=== PATIENT | female | born 1935 | race Caucasian/White ===

== ENCOUNTER 2017-05-24 09:40 | Inpatient (IN) ==
[2017-05-24] MEDS ORDERED: LEVOFLOXACIN INJ 500 MG in PREMIX 1 EACH IV STA (09:56)
[2017-05-24] MEDS ORDERED: methylPREDNISolone SOD SUC 125 MG/2 ML VIAL IV STA (09:56)
[2017-05-24] MEDS ORDERED: LEVALBUTEROL 1.25 MG/3 ML NEB RESP TX STA (09:57)
[2017-05-24] MEDS ORDERED: LEVOFLOXACIN INJ 100 ML IV ONE (10:02)
[2017-05-24] MEDS ORDERED: methylPREDNISolone SOD SUC 125 MG/2 ML VIAL ONE (10:02)
[2017-05-24 10:07] LABS: Basophils # 0.1 10*3/uL (0.0-0.2); Basophils % 0.7 % (0.0-0.8); Hematocrit 38.9 VOL% (35.7-47.0); Hemoglobin 12.5 GM/DL (12.0-16.0); Immature Granulocytes % 0.5 %; Immature Granulocytes Absolute 0.05 #; Lymphocytes # 1.9 10*3/uL (1.4-4.0); Lymphocytes % 18.5 % (21.3-54.2); Mean Corpuscular HGB Conc 32.1 GM/DL (32-36); Mean Corpuscular Hemoglobin 27 PG (27-34); Mean Corpuscular Volume 83.5 FL (87-102); Mean Platelet Volume 9.8 FL (9.6-12.0); Monocytes % 9.6 % (1.7-12.7); Neutrophils # 7.4 10*3/uL (1.4-7.4); Neutrophils % 70.7 % (38.7-73.9); Platelet Count 200 T/CUMM (130-400); Red Blood Count 4.66 MC/CUMM (3.8-5.5); Red Cell Distribution Width 14.3 % (9.3-17.3); White Blood Count 10.5 T/CUMM (4-12)
[2017-05-24 10:18] LABS: INR 0.9; Partial Thromboplastin Time 28.4 SECS (0-40)
[2017-05-24 10:43] LABS: Albumin 3.6 G/DL (3.4-5.0); Bilirubin,Total 0.8 MG/DL (0.2-1.0); Calcium 8.3 MG/DL (8.5-10.1); Osmolality,Calculated 258.9 MOS/KG (273-304); Potassium 3.9 MMOL/L (3.5-5.1); Total Protein 6.8 G/DL (6.4-8.3)
[2017-05-24 10:44] LABS: Apearance,Urine CLEAR (Clear); Bilirubin,Urine Negative (Negative); Blood, Urine Negative (Negative); Glucose,Urine (UA) 150 mg/dL (Negative); Ketones,Urine Negative (Negative); Mucus,Urine Occasional /LPF (Occasional); Nitrite,Urine Negative (Negative); Protein,Urine 30 MG/DL; RBC,Urine 1 /HPF (0-4); Squamous Epithelial Cell,Urine Occasional /HPF (0-10); Troponin I Only 0.329 NG/ML (0.00-0.045); Urine Color Yellow (Yellow); Urine Specific Gravity 1.018 (1.001-1.035); WBC,Urine 1 /HPF (0-6)
[2017-05-24] MEDS ORDERED: ASPIRIN CHEW 81 MG TABLET PO STA (11:28)
[2017-05-24] MEDS ORDERED: ENOXAPARIN 80 MG/0.8 ML SYRINGE SUBCUT STA (11:28)
[2017-05-24] MEDS ORDERED: OSELTAMIVIR 75 MG CAPSULE ONE (11:36)
[2017-05-24] MEDS: OSELTAMIVIR 75 MG CAPSULE PO SCH ×2 (11:39→22:57)
[2017-05-24] MEDS ORDERED: ENOXAPARIN 100 MG/ML SYRINGE SUBCUT ONE (11:40)
[2017-05-24] MEDS ORDERED: ASPIRIN CHEW 81 MG TABLET PO ONE (11:40)
[2017-05-24] MEDS ORDERED: ONDANSETRON 4 MG/2 ML VIAL IV PRN (15:09)
[2017-05-24] MEDS ORDERED: LEVALBUTEROL 1.25 MG/3 ML NEB RESP TX SCH (15:09)
[2017-05-24] MEDS ORDERED: GLUCAGON 1 MG VIAL IM PRN (15:09)
[2017-05-24] MEDS ORDERED: ACETAMINOPHEN 325 MG TABLET PO PRN (15:09)
[2017-05-24] MEDS ORDERED: methylPREDNISolone SOD SUC 125 MG/2 ML VIAL IV SCH (15:09)
[2017-05-24] MEDS ORDERED: DEXTROSE 50% 25 GM/50 ML VIAL IV PRN (15:09)
[2017-05-24] MEDS ORDERED: FUROSEMIDE 20 MG/2 ML VIAL IV ONE ×2 (16:01→21:15)
[2017-05-24] MEDS ORDERED: hydrALAZINE 25 MG TABLET PO PRN (16:05)
[2017-05-24] MEDS: SODIUM CHLORIDE 0.9% 1,000 ML IV SCH (16:27)
[2017-05-24] MEDS: methylPREDNISolone SOD SUC 125 MG/2 ML VIAL IV SCH (16:27)
[2017-05-24] MEDS: LEVALBUTEROL 1.25 MG/3 ML NEB RESP TX SCH ×2 (17:28→19:23)
[2017-05-24] MEDS: BUDESONIDE 0.25 MG/2 ML NEB RESP TX SCH ×2 (17:28→19:23)
[2017-05-24] MEDS: INSULIN LISPRO 100 UNIT/ML SUBCUT SCH ×2 (17:37→22:58)
[2017-05-24] MEDS ORDERED: hydrALAZINE 25 MG TABLET PO ONE (21:23)
[2017-05-24] MEDS: DOCUSATE SODIUM 100 MG CAPSULE PO SCH (22:57)
[2017-05-24] MEDS: OLANZapine 2.5 MG TABLET PO SCH (22:58)
[2017-05-24 23:02] LABS: CKMB % 1.2 %
[2017-05-24 23:03] LABS: Troponin I Only 0.199 NG/ML (0.00-0.045)
[2017-05-24] MEDS: KETOROLAC 15 MG/1 ML VIAL IV SCH (23:41)
[2017-05-24] MEDS: methylPREDNISolone SOD SUC 40 MG/1 ML VIAL IV SCH (23:42)
[2017-05-24] MEDS: cefTRIAXone 500 MG in SYRINGE 1 EACH IV SCH (23:43)
[2017-05-25] MEDS: methylPREDNISolone SOD SUC 125 MG/2 ML VIAL IV SCH (00:20)
[2017-05-25] MEDS: LEVALBUTEROL 1.25 MG/3 ML NEB RESP TX SCH ×6 (00:27→19:44)
[2017-05-25] MEDS: SODIUM CHLORIDE 0.9% 1,000 ML IV SCH ×3 (03:56→22:36)
[2017-05-25] MEDS: KETOROLAC 15 MG/1 ML VIAL IV SCH ×4 (03:57→22:41)
[2017-05-25 04:44] LABS: Basophils % 0.1 % (0.0-0.8); Hematocrit 37.4 VOL% (35.7-47.0); Hemoglobin 12.4 GM/DL (12.0-16.0); Immature Granulocytes % 0.6 %; Immature Granulocytes Absolute 0.04 #; Lymphocytes # 0.8 10*3/uL (1.4-4.0); Mean Corpuscular HGB Conc 33.2 GM/DL (32-36); Mean Corpuscular Hemoglobin 27 PG (27-34); Mean Corpuscular Volume 80.8 FL (87-102); Mean Platelet Volume 10.3 FL (9.6-12.0); Monocytes # 0.4 10*3/uL (0.11-0.8); Monocytes % 5.4 % (1.7-12.7); Neutrophils % 82.9 % (38.7-73.9); Platelet Count 207 T/CUMM (130-400); Red Blood Count 4.63 MC/CUMM (3.8-5.5); Red Cell Distribution Width 14.2 % (9.3-17.3); White Blood Count 7.3 T/CUMM (4-12)
[2017-05-25 05:31] LABS: Calcium 7.9 MG/DL (8.5-10.1); Magnesium 1.7 MG/DL (1.8-2.4); Osmolality,Calculated 275.5 MOS/KG (273-304); Potassium 3.8 MMOL/L (3.5-5.1)
[2017-05-25 05:48] LABS: CKMB % 1.4 %
[2017-05-25 05:55] LABS: Troponin I Only 0.128 NG/ML (0.00-0.045)
[2017-05-25] MEDS: methylPREDNISolone SOD SUC 40 MG/1 ML VIAL IV SCH ×3 (06:21→22:42)
[2017-05-25] MEDS: BUDESONIDE 0.25 MG/2 ML NEB RESP TX SCH ×2 (07:24→19:44)
[2017-05-25] MEDS ORDERED: OLANZapine 2.5 MG TABLET PO SCH (09:00)
[2017-05-25] MEDS: DOCUSATE SODIUM 100 MG CAPSULE PO SCH ×2 (10:13→22:37)
[2017-05-25] MEDS: PANTOPRAZOLE 40 MG TABLET PO SCH (10:18)
[2017-05-25] MEDS: METOPROLOL SUCCINATE XL 100 MG TABLET PO SCH (10:18)
[2017-05-25] MEDS: INSULIN LISPRO 100 UNIT/ML SUBCUT SCH ×4 (10:18→22:38)
[2017-05-25] MEDS: PARoxetine 20 MG TABLET PO SCH (10:18)
[2017-05-25] MEDS: hydrALAZINE 25 MG TABLET PO SCH ×3 (10:18→22:37)
[2017-05-25] MEDS: FUROSEMIDE 20 MG/2 ML VIAL IV SCH (10:18)
[2017-05-25] MEDS: OSELTAMIVIR 75 MG CAPSULE PO SCH ×2 (10:18→22:37)
[2017-05-25] MEDS: AZITHROMYCIN INJ 250 MG in SODIUM CHLORIDE 0.9% 250 ML IV SCH (10:19)
[2017-05-25] MEDS ORDERED: MAGNESIUM SULF RIDER 2 GM in PREMIX 1 EACH IV ONE (10:38)
[2017-05-25] MEDS: ZINC OXIDE PASTE 113 GM TUBE TOP SCH ×2 (17:25→22:38)
[2017-05-25] MEDS: MONTELUKAST 10 MG TABLET PO SCH (17:25)
[2017-05-25] MEDS ORDERED: MAGNESIUM SULF RIDER 2 GM in PREMIX 1 EACH IV PRN (18:06)
[2017-05-25] MEDS ORDERED: MAGNESIUM SULF RIDER 4 GM in PREMIX 1 EACH IV PRN (18:06)
[2017-05-25] MEDS: OLANZapine 2.5 MG TABLET PO SCH (22:37)
[2017-05-25] MEDS: cefTRIAXone 500 MG in SYRINGE 1 EACH IV SCH (22:38)
[2017-05-26] MEDS: LEVALBUTEROL 1.25 MG/3 ML NEB RESP TX SCH ×6 (02:09→19:30)
[2017-05-26] MEDS: KETOROLAC 15 MG/1 ML VIAL IV SCH ×4 (04:57→22:15)
[2017-05-26] MEDS: methylPREDNISolone SOD SUC 40 MG/1 ML VIAL IV SCH ×3 (05:00→22:18)
[2017-05-26 05:01] LABS: Basophils % 0.1 % (0.0-0.8); Hematocrit 37.8 VOL% (35.7-47.0); Hemoglobin 12.2 GM/DL (12.0-16.0); Immature Granulocytes % 0.5 %; Immature Granulocytes Absolute 0.06 #; Lymphocytes % 8.5 % (21.3-54.2); Mean Corpuscular HGB Conc 32.3 GM/DL (32-36); Mean Corpuscular Hemoglobin 27 PG (27-34); Mean Corpuscular Volume 82.9 FL (87-102); Monocytes # 0.6 10*3/uL (0.11-0.8); Monocytes % 5.4 % (1.7-12.7); Neutrophils # 9.9 10*3/uL (1.4-7.4); Neutrophils % 85.5 % (38.7-73.9); Platelet Count 249 T/CUMM (130-400); Red Blood Count 4.56 MC/CUMM (3.8-5.5); Red Cell Distribution Width 14.5 % (9.3-17.3); White Blood Count 11.6 T/CUMM (4-12)
[2017-05-26 05:36] LABS: Calcium 7.9 MG/DL (8.5-10.1); Osmolality,Calculated 276.2 MOS/KG (273-304); Potassium 4.1 MMOL/L (3.5-5.1)
[2017-05-26] MEDS: SODIUM CHLORIDE 0.9% 1,000 ML IV SCH ×3 (05:59→16:16)
[2017-05-26] MEDS: BUDESONIDE 0.25 MG/2 ML NEB RESP TX SCH ×2 (07:24→19:30)
[2017-05-26] MEDS: MONTELUKAST 10 MG TABLET PO SCH (09:25)
[2017-05-26] MEDS: PARoxetine 20 MG TABLET PO SCH (09:25)
[2017-05-26] MEDS: METOPROLOL SUCCINATE XL 100 MG TABLET PO SCH (09:26)
[2017-05-26] MEDS: PANTOPRAZOLE 40 MG TABLET PO SCH (09:26)
[2017-05-26] MEDS: OSELTAMIVIR 75 MG CAPSULE PO SCH ×2 (09:26→20:54)
[2017-05-26] MEDS: hydrALAZINE 25 MG TABLET PO SCH ×3 (09:26→21:01)
[2017-05-26] MEDS: FUROSEMIDE 20 MG/2 ML VIAL IV SCH (09:26)
[2017-05-26] MEDS: DOCUSATE SODIUM 100 MG CAPSULE PO SCH ×2 (09:26→20:54)
[2017-05-26] MEDS: INSULIN LISPRO 100 UNIT/ML SUBCUT SCH ×4 (09:26→21:01)
[2017-05-26] MEDS: AZITHROMYCIN INJ 250 MG in SODIUM CHLORIDE 0.9% 250 ML IV SCH (09:42)
[2017-05-26] MEDS: GLIMEPIRIDE 4 MG TABLET PO SCH (14:28)
[2017-05-26] MEDS: ZINC OXIDE PASTE 113 GM TUBE TOP SCH ×2 (17:05→20:55)
[2017-05-26] MEDS: OLANZapine 2.5 MG TABLET PO SCH (20:54)
[2017-05-26] MEDS: cefTRIAXone 500 MG in SYRINGE 1 EACH IV SCH (22:15)
[2017-05-27] MEDS: LEVALBUTEROL 1.25 MG/3 ML NEB RESP TX SCH ×6 (00:19→19:58)
[2017-05-27 02:29] LABS: Basophils % 0.1 % (0.0-0.8); Hematocrit 35.3 VOL% (35.7-47.0); Immature Granulocytes Absolute 0.11 #; Lymphocytes # 1.4 10*3/uL (1.4-4.0); Lymphocytes % 13.2 % (21.3-54.2); Mean Corpuscular HGB Conc 31.2 GM/DL (32-36); Mean Corpuscular Hemoglobin 26 PG (27-34); Mean Corpuscular Volume 84.7 FL (87-102); Mean Platelet Volume 9.9 FL (9.6-12.0); Monocytes # 0.8 10*3/uL (0.11-0.8); Monocytes % 7.1 % (1.7-12.7); Neutrophils # 8.3 10*3/uL (1.4-7.4); Neutrophils % 78.6 % (38.7-73.9); Platelet Count 224 T/CUMM (130-400); Red Blood Count 4.17 MC/CUMM (3.8-5.5); Red Cell Distribution Width 14.6 % (9.3-17.3); White Blood Count 10.6 T/CUMM (4-12)
[2017-05-27 03:02] LABS: Calcium 7.6 MG/DL (8.5-10.1); Magnesium 2.3 MG/DL (1.8-2.4); Potassium 4.3 MMOL/L (3.5-5.1)
[2017-05-27] MEDS: KETOROLAC 15 MG/1 ML VIAL IV SCH ×4 (05:37→22:50)
[2017-05-27] MEDS: methylPREDNISolone SOD SUC 40 MG/1 ML VIAL IV SCH ×3 (05:37→22:48)
[2017-05-27] MEDS: BUDESONIDE 0.25 MG/2 ML NEB RESP TX SCH ×2 (07:28→19:59)
[2017-05-27] MEDS: INSULIN LISPRO 100 UNIT/ML SUBCUT SCH ×4 (08:00→22:47)
[2017-05-27] MEDS: SODIUM CHLORIDE 0.9% 1,000 ML IV SCH ×3 (08:00→21:12)
[2017-05-27] MEDS: MONTELUKAST 10 MG TABLET PO SCH (09:22)
[2017-05-27] MEDS: GLIMEPIRIDE 4 MG TABLET PO SCH (09:23)
[2017-05-27] MEDS: PANTOPRAZOLE 40 MG TABLET PO SCH (09:23)
[2017-05-27] MEDS: hydrALAZINE 25 MG TABLET PO SCH ×3 (09:23→21:11)
[2017-05-27] MEDS: DOCUSATE SODIUM 100 MG CAPSULE PO SCH ×2 (09:23→21:11)
[2017-05-27] MEDS: PARoxetine 20 MG TABLET PO SCH (09:23)
[2017-05-27] MEDS: OSELTAMIVIR 75 MG CAPSULE PO SCH ×2 (09:23→21:11)
[2017-05-27] MEDS: METOPROLOL SUCCINATE XL 100 MG TABLET PO SCH (09:24)
[2017-05-27] MEDS: ZINC OXIDE PASTE 113 GM TUBE TOP SCH ×2 (09:24→21:12)
[2017-05-27] MEDS: FUROSEMIDE 20 MG/2 ML VIAL IV SCH (09:39)
[2017-05-27] MEDS: AZITHROMYCIN INJ 250 MG in SODIUM CHLORIDE 0.9% 250 ML IV SCH (10:39)
[2017-05-27] MEDS ORDERED: FUROSEMIDE 20 MG/2 ML VIAL IV ONE (12:55)
[2017-05-27] MEDS: CETIRIZINE 10 MG TABLET PO SCH (14:21)
[2017-05-27] MEDS: OLANZapine 2.5 MG TABLET PO SCH (21:11)
[2017-05-27] MEDS: cefTRIAXone 500 MG in SYRINGE 1 EACH IV SCH (22:50)
[2017-05-28] MEDS: LEVALBUTEROL 1.25 MG/3 ML NEB RESP TX SCH ×7 (01:08→20:14)
[2017-05-28] MEDS: methylPREDNISolone SOD SUC 40 MG/1 ML VIAL IV SCH ×3 (05:06→23:42)
[2017-05-28] MEDS: KETOROLAC 15 MG/1 ML VIAL IV SCH ×5 (05:06→23:42)
[2017-05-28 05:33] LABS: Basophils % 0.1 % (0.0-0.8); Hematocrit 35.3 VOL% (35.7-47.0); Hemoglobin 11.3 GM/DL (12.0-16.0); Immature Granulocytes % 2.6 %; Immature Granulocytes Absolute 0.21 #; Lymphocytes % 12.6 % (21.3-54.2); Mean Corpuscular Hemoglobin 27 PG (27-34); Mean Corpuscular Volume 83.6 FL (87-102); Monocytes # 0.6 10*3/uL (0.11-0.8); Monocytes % 7.3 % (1.7-12.7); Neutrophils # 6.1 10*3/uL (1.4-7.4); Neutrophils % 77.4 % (38.7-73.9); Platelet Count 202 T/CUMM (130-400); Red Blood Count 4.22 MC/CUMM (3.8-5.5); Red Cell Distribution Width 14.9 % (9.3-17.3); White Blood Count 7.9 T/CUMM (4-12)
[2017-05-28 06:03] LABS: Calcium 7.5 MG/DL (8.5-10.1); Osmolality,Calculated 286.5 MOS/KG (273-304); Potassium 4.1 MMOL/L (3.5-5.1)
[2017-05-28] MEDS: SODIUM CHLORIDE 0.9% 1,000 ML IV SCH ×2 (06:18→19:13)
[2017-05-28] MEDS: BUDESONIDE 0.25 MG/2 ML NEB RESP TX SCH ×3 (07:03→20:14)
[2017-05-28] MEDS: INSULIN LISPRO 100 UNIT/ML SUBCUT SCH ×4 (08:41→21:41)
[2017-05-28] MEDS: ZINC OXIDE PASTE 113 GM TUBE TOP SCH ×2 (08:48→21:31)
[2017-05-28] MEDS: MONTELUKAST 10 MG TABLET PO SCH (08:48)
[2017-05-28] MEDS: METOPROLOL SUCCINATE XL 100 MG TABLET PO SCH (08:48)
[2017-05-28] MEDS: GLIMEPIRIDE 4 MG TABLET PO SCH (08:48)
[2017-05-28] MEDS: PARoxetine 20 MG TABLET PO SCH (08:48)
[2017-05-28] MEDS: PANTOPRAZOLE 40 MG TABLET PO SCH (08:48)
[2017-05-28] MEDS: AZITHROMYCIN INJ 250 MG in SODIUM CHLORIDE 0.9% 250 ML IV SCH (08:48)
[2017-05-28] MEDS: OSELTAMIVIR 75 MG CAPSULE PO SCH ×2 (08:48→21:30)
[2017-05-28] MEDS: hydrALAZINE 25 MG TABLET PO SCH ×3 (08:49→21:30)
[2017-05-28] MEDS: DOCUSATE SODIUM 100 MG CAPSULE PO SCH ×2 (08:49→21:30)
[2017-05-28] MEDS: CETIRIZINE 10 MG TABLET PO SCH (08:49)
[2017-05-28] MEDS: FUROSEMIDE 20 MG/2 ML VIAL IV SCH (08:56)
[2017-05-28] MEDS ORDERED: AMINOPHYLLINE 125 MG in SODIUM CHLORIDE 0.9% 100 ML IV ONE (15:00)
[2017-05-28] MEDS: THEOPHYLLINE ER (24 HR) 200 MG CAPSULE PO SCH (16:39)
[2017-05-28] MEDS: OLANZapine 2.5 MG TABLET PO SCH (21:30)
[2017-05-28] MEDS: cefTRIAXone 500 MG in SYRINGE 1 EACH IV SCH (21:31)
[2017-05-29] MEDS: LEVALBUTEROL 1.25 MG/3 ML NEB RESP TX SCH ×7 (01:06→23:47)
[2017-05-29] MEDS: methylPREDNISolone SOD SUC 40 MG/1 ML VIAL IV SCH ×3 (04:50→17:57)
[2017-05-29] MEDS: KETOROLAC 15 MG/1 ML VIAL IV SCH (04:50)
[2017-05-29 05:55] LABS: Basophils % 0.3 % (0.0-0.8); Hematocrit 36.7 VOL% (35.7-47.0); Hemoglobin 11.8 GM/DL (12.0-16.0); Immature Granulocytes % 3.2 %; Immature Granulocytes Absolute 0.24 #; Lymphocytes # 1.5 10*3/uL (1.4-4.0); Lymphocytes % 20.3 % (21.3-54.2); Mean Corpuscular HGB Conc 32.2 GM/DL (32-36); Mean Corpuscular Hemoglobin 27 PG (27-34); Mean Corpuscular Volume 82.7 FL (87-102); Mean Platelet Volume 9.8 FL (9.6-12.0); Monocytes # 0.6 10*3/uL (0.11-0.8); Monocytes % 7.4 % (1.7-12.7); Neutrophils # 5.1 10*3/uL (1.4-7.4); Neutrophils % 68.8 % (38.7-73.9); Platelet Count 184 T/CUMM (130-400); Red Blood Count 4.44 MC/CUMM (3.8-5.5); Red Cell Distribution Width 14.6 % (9.3-17.3); White Blood Count 7.5 T/CUMM (4-12)
[2017-05-29 06:24] LABS: Calcium 8.2 MG/DL (8.5-10.1); Osmolality,Calculated 281.7 MOS/KG (273-304); Potassium 4.1 MMOL/L (3.5-5.1)
[2017-05-29 06:31] LABS: Band Neutrophils 1 % (0-10); Hypochromasia 1+; Lymphocytes 15 % (20-55); Microcytosis 1+; Segmented Neutrophils 78 % (50-85); Total Cells Counted 100
[2017-05-29 06:32] LABS: Platelet Estimate Adequate
[2017-05-29] MEDS: BUDESONIDE 0.25 MG/2 ML NEB RESP TX SCH ×2 (08:27→18:14)
[2017-05-29] MEDS: SODIUM CHLORIDE 0.9% 1,000 ML IV SCH (09:26)
[2017-05-29] MEDS: INSULIN LISPRO 100 UNIT/ML SUBCUT SCH ×4 (10:52→22:26)
[2017-05-29] MEDS: THEOPHYLLINE ER (24 HR) 200 MG CAPSULE PO SCH (10:52)
[2017-05-29] MEDS: amLODIPine 2.5 MG TABLET PO SCH (10:53)
[2017-05-29] MEDS: PARoxetine 20 MG TABLET PO SCH (10:53)
[2017-05-29] MEDS: metFORMIN 500 MG TABLET PO SCH ×2 (10:53→22:26)
[2017-05-29] MEDS: CETIRIZINE 10 MG TABLET PO SCH (10:53)
[2017-05-29] MEDS: MONTELUKAST 10 MG TABLET PO SCH (10:53)
[2017-05-29] MEDS: hydrALAZINE 25 MG TABLET PO SCH ×3 (10:54→21:57)
[2017-05-29] MEDS: GLIMEPIRIDE 4 MG TABLET PO SCH (10:54)
[2017-05-29] MEDS: DOCUSATE SODIUM 100 MG CAPSULE PO SCH ×2 (10:54→21:57)
[2017-05-29] MEDS: METOPROLOL SUCCINATE XL 100 MG TABLET PO SCH (10:54)
[2017-05-29] MEDS: OSELTAMIVIR 75 MG CAPSULE PO SCH ×2 (10:54→21:56)
[2017-05-29] MEDS: FUROSEMIDE 20 MG TABLET PO SCH (10:54)
[2017-05-29] MEDS: PANTOPRAZOLE 40 MG TABLET PO SCH (10:55)
[2017-05-29] MEDS: ZINC OXIDE PASTE 113 GM TUBE TOP SCH (10:55)
[2017-05-29] MEDS: AZITHROMYCIN INJ 250 MG in SODIUM CHLORIDE 0.9% 250 ML IV SCH (11:05)
[2017-05-29] MEDS: OLANZapine 2.5 MG TABLET PO SCH (21:57)
[2017-05-29] MEDS: cefTRIAXone 500 MG in SYRINGE 1 EACH IV SCH (22:45)
[2017-05-30] MEDS: LEVALBUTEROL 1.25 MG/3 ML NEB RESP TX SCH ×5 (02:31→21:08)
[2017-05-30] MEDS: methylPREDNISolone SOD SUC 40 MG/1 ML VIAL IV SCH ×2 (04:42→09:08)
[2017-05-30] MEDS: ZINC OXIDE PASTE 113 GM TUBE TOP SCH ×3 (05:15→21:49)
[2017-05-30] MEDS: BUDESONIDE 0.25 MG/2 ML NEB RESP TX SCH ×2 (08:02→21:08)
[2017-05-30] MEDS: MONTELUKAST 10 MG TABLET PO SCH (08:56)
[2017-05-30] MEDS: amLODIPine 2.5 MG TABLET PO SCH (08:56)
[2017-05-30] MEDS: PANTOPRAZOLE 40 MG TABLET PO SCH (08:56)
[2017-05-30] MEDS: metFORMIN 500 MG TABLET PO SCH ×2 (08:56→21:49)
[2017-05-30] MEDS: DOCUSATE SODIUM 100 MG CAPSULE PO SCH ×2 (08:56→21:49)
[2017-05-30] MEDS: METOPROLOL SUCCINATE XL 100 MG TABLET PO SCH (08:56)
[2017-05-30] MEDS: FUROSEMIDE 20 MG TABLET PO SCH (08:57)
[2017-05-30] MEDS: PARoxetine 20 MG TABLET PO SCH (08:57)
[2017-05-30] MEDS: hydrALAZINE 25 MG TABLET PO SCH ×3 (08:57→21:49)
[2017-05-30] MEDS: THEOPHYLLINE ER (24 HR) 200 MG CAPSULE PO SCH (08:57)
[2017-05-30] MEDS: GLIMEPIRIDE 4 MG TABLET PO SCH (08:57)
[2017-05-30] MEDS: CETIRIZINE 10 MG TABLET PO SCH (08:57)
[2017-05-30] MEDS: INSULIN LISPRO 100 UNIT/ML SUBCUT SCH ×4 (08:58→21:49)
[2017-05-30] MEDS: OLANZapine 2.5 MG TABLET PO SCH (21:49)
[2017-05-30] MEDS: cefTRIAXone 500 MG in SYRINGE 1 EACH IV SCH (21:50)
[2017-05-31] MEDS: LEVALBUTEROL 1.25 MG/3 ML NEB RESP TX SCH ×3 (00:24→08:01)
[2017-05-31] MEDS: BUDESONIDE 0.25 MG/2 ML NEB RESP TX SCH (08:01)
[2017-05-31] MEDS: INSULIN LISPRO 100 UNIT/ML SUBCUT SCH ×2 (08:32→12:54)
[2017-05-31] MEDS: metFORMIN 500 MG TABLET PO SCH (08:33)
[2017-05-31] MEDS: GLIMEPIRIDE 4 MG TABLET PO SCH (08:33)
[2017-05-31] MEDS: PARoxetine 20 MG TABLET PO SCH (10:37)
[2017-05-31] MEDS: FUROSEMIDE 20 MG TABLET PO SCH (10:37)
[2017-05-31] MEDS: MONTELUKAST 10 MG TABLET PO SCH (10:37)
[2017-05-31] MEDS: CETIRIZINE 10 MG TABLET PO SCH (10:37)
[2017-05-31] MEDS: DOCUSATE SODIUM 100 MG CAPSULE PO SCH (10:37)
[2017-05-31] MEDS: hydrALAZINE 25 MG TABLET PO SCH (10:37)
[2017-05-31] MEDS: THEOPHYLLINE ER (24 HR) 200 MG CAPSULE PO SCH (10:37)
[2017-05-31] MEDS: PANTOPRAZOLE 40 MG TABLET PO SCH (10:37)
[2017-05-31] MEDS: amLODIPine 2.5 MG TABLET PO SCH (10:37)
[2017-05-31] MEDS: METOPROLOL SUCCINATE XL 100 MG TABLET PO SCH (10:38)
[2017-05-31] MEDS: methylPREDNISolone SOD SUC 40 MG/1 ML VIAL IV SCH (10:38)
[2017-05-31] MEDS: ZINC OXIDE PASTE 113 GM TUBE TOP SCH (10:57)
[2017-05-31 12:15] VITALS: BP 145/62
== END 2017-05-31 13:55 | disposition home health service (06) | DRG 202 ==
LOC: EDBD → EDUNIT# → N.ED 09:40 → N.EDINP 11:32 → N.TELES 14:30
PROVIDERS: ADMIT Internal Medicine; ATTEND Internal Medicine

== ENCOUNTER 2021-05-18 18:31 | Inpatient (IN) ==
[2021-05-18] MEDS ORDERED: ALBUTEROL 2.5 MG/3 ML NEB RESP TX STA ×2 (18:56→19:45)
[2021-05-18] MEDS ORDERED: methylPREDNISolone SOD SUC 125 MG/2 ML VIAL IV STA (18:56)
[2021-05-18] MEDS ORDERED: LEVOFLOXACIN INJ 500 MG/100 ML PREMIX IV STA (19:43)
[2021-05-18 19:45] LABS: Basophils % 0.3 % (0.0-0.8); Eosinophils # 0.1 10*3/uL (0.0-0.87); Eosinophils % 0.7 % (0.00-10.9); Hematocrit 39.9 VOL% (35.7-47.0); Immature Granulocytes % 0.7 %; Immature Granulocytes Absolute 0.11 #; Lymphocytes % 12.7 % (21.3-54.2); Mean Corpuscular HGB Conc 32.6 GM/DL (32-36); Mean Corpuscular Volume 83.3 FL (87-102); Mean Platelet Volume 9.6 FL (9.6-12.0); Neutrophils % 78.6 % (38.7-73.9); Platelet Count 238 T/CUMM (130-400); Red Blood Count 4.79 MC/CUMM (3.8-5.5); Red Cell Distribution Width 13.3 % (9.3-17.3); White Blood Count 15.9 T/CUMM (4-12)
[2021-05-18] MEDS ORDERED: ALBUTEROL/IPRATROPIUM 3 ML NEB RESP TX STA (19:47)
[2021-05-18 20:00] LABS: ABG Base Excess 5.1 MMOL/L (-2.5-2.5); ABG Oxygen Saturation 95.8 % (95-100); ABG PCO2 61.8 MM HG (35-48); ABG PH 7.337 (7.35-7.45); ABG PO2 84.7 MM HG (80-95); ABG TCO2 29.2 MMOL/L (23-27)
[2021-05-18 20:03] LABS: Albumin 3.2 G/DL (3.4-5.0); Bilirubin,Total 0.5 MG/DL (0.20-1.00); Calcium 8.1 MG/DL (8.5-10.1); Osmolality,Calculated 256.1 MOS/KG (273-304); Potassium 4.1 MMOL/L (3.5-5.1); Total Protein 6.4 G/DL (6.4-8.2)
[2021-05-18] MEDS ORDERED: ONDANSETRON 4 MG/2 ML VIAL IV PRN (21:37)
[2021-05-18] MEDS ORDERED: GLUCAGON 1 MG VIAL IM PRN (21:37)
[2021-05-18] MEDS ORDERED: DEXTROSE 50% 25 GM/50 ML SYRINGE IV PRN (21:37)
[2021-05-18] MEDS ORDERED: ALBUTEROL 2.5 MG/3 ML NEB RESP TX PRN (21:55)
[2021-05-18] MEDS: ALBUTEROL 2.5 MG/3 ML NEB RESP TX SCH (22:00)
[2021-05-18 22:52] LABS: ABG Base Excess -1.5 MMOL/L (-2.5-2.5); ABG HCO3 23.2 MMOL/L (20-26); ABG Oxygen Saturation 97.8 % (95-100); ABG PH 7.304 (7.35-7.45); ABG TCO2 22.8 MMOL/L (23-27)
[2021-05-19] MEDS: methylPREDNISolone SOD SUC 40 MG/1 ML VIAL IV SCH ×4 (01:56→18:38)
[2021-05-19] MEDS: ALBUTEROL 2.5 MG/3 ML NEB RESP TX SCH ×7 (02:30→20:35)
[2021-05-19 05:13] LABS: Basophils % 0.1 % (0.0-0.8); Hematocrit 40.4 VOL% (35.7-47.0); Hemoglobin 13.1 GM/DL (12.0-16.0); Immature Granulocytes % 0.6 %; Lymphocytes # 0.6 10*3/uL (1.4-4.0); Lymphocytes % 3.6 % (21.3-54.2); Mean Corpuscular HGB Conc 32.4 GM/DL (32-36); Mean Platelet Volume 9.5 FL (9.6-12.0); Monocytes % 2.3 % (1.7-12.7); Neutrophils % 93.4 % (38.7-73.9); Platelet Count 249 T/CUMM (130-400); Red Blood Count 4.81 MC/CUMM (3.8-5.5); Red Cell Distribution Width 13.3 % (9.3-17.3); White Blood Count 17.1 T/CUMM (4-12)
[2021-05-19 05:27] LABS: Albumin 2.8 G/DL (3.4-5.0); Bilirubin,Total 0.6 MG/DL (0.20-1.00); Calcium 8.6 MG/DL (8.5-10.1); Osmolality,Calculated 258.6 MOS/KG (273-304); Potassium 3.8 MMOL/L (3.5-5.1); Total Protein 7.2 G/DL (6.4-8.2)
[2021-05-19 08:18] LABS: Lymphocytes 1 % (20-55); Platelet Estimate Normal; Polychromasia Slight; Segmented Neutrophils 98 % (50-85); Total Cells Counted 100
[2021-05-19] MEDS ORDERED: OLANZapine 2.5 MG TABLET PO SCH (09:00)
[2021-05-19] MEDS: THEOPHYLLINE ER (24 HR) 200 MG CAPSULE PO SCH (09:21)
[2021-05-19] MEDS: metFORMIN 500 MG TABLET PO SCH ×2 (09:21→20:59)
[2021-05-19] MEDS: amLODIPine 2.5 MG TABLET PO SCH (09:22)
[2021-05-19] MEDS: PANTOPRAZOLE 40 MG TABLET PO SCH (09:22)
[2021-05-19] MEDS: GLIMEPIRIDE 4 MG TABLET PO SCH (09:22)
[2021-05-19] MEDS: DOCUSATE SODIUM 100 MG CAPSULE PO SCH ×2 (09:22→21:00)
[2021-05-19] MEDS: MONTELUKAST 10 MG TABLET PO SCH (09:24)
[2021-05-19] MEDS: ACETAMINOPHEN 325 MG TABLET PO PRN (09:25)
[2021-05-19] MEDS ORDERED: GLUCAGON 1 MG VIAL IM PRN (10:10)
[2021-05-19] MEDS ORDERED: DEXTROSE 50% 25 GM/50 ML SYRINGE IV PRN (10:10)
[2021-05-19] MEDS ORDERED: ALBUTEROL 2.5 MG/3 ML NEB RESP TX SCH (11:00)
[2021-05-19] MEDS: LEVOFLOXACIN INJ 500 MG/100 ML PREMIX IV SCH (11:23)
[2021-05-19] MEDS: INSULIN LISPRO 100 UNIT/ML SUBCUT SCH ×3 (12:13→21:00)
[2021-05-19] MEDS ORDERED: INFLUENZA VIRUS VACCINE 0.5 ML SYRINGE IM ONE (13:19)
[2021-05-19] MEDS: OLANZapine 2.5 MG TABLET PO SCH (20:59)
[2021-05-20] MEDS: ALBUTEROL 2.5 MG/3 ML NEB RESP TX SCH ×6 (00:35→21:02)
[2021-05-20] MEDS: methylPREDNISolone SOD SUC 40 MG/1 ML VIAL IV SCH ×4 (01:08→19:13)
[2021-05-20 05:46] LABS: Basophils % 0.1 % (0.0-0.8); Hematocrit 36.1 VOL% (35.7-47.0); Hemoglobin 11.9 GM/DL (12.0-16.0); Immature Granulocytes % 1.4 %; Immature Granulocytes Absolute 0.29 #; Lymphocytes # 1.5 10*3/uL (1.4-4.0); Lymphocytes % 7.1 % (21.3-54.2); Mean Corpuscular Volume 81.7 FL (87-102); Mean Platelet Volume 9.6 FL (9.6-12.0); Monocytes % 4.1 % (1.7-12.7); Neutrophils % 87.3 % (38.7-73.9); Platelet Count 280 T/CUMM (130-400); Red Blood Count 4.42 MC/CUMM (3.8-5.5); Red Cell Distribution Width 13.4 % (9.3-17.3); White Blood Count 21.1 T/CUMM (4-12)
[2021-05-20 06:11] LABS: Calcium 8.7 MG/DL (8.5-10.1); Osmolality,Calculated 247.9 MOS/KG (273-304); Potassium 4.2 MMOL/L (3.5-5.1)
[2021-05-20 06:17] LABS: Hypochromia Slight; Lymphocytes 10 % (20-55); Microcytosis Slight; Platelet Estimate Adequate; Segmented Neutrophils 88 % (50-85); Total Cells Counted 100
[2021-05-20] MEDS ORDERED: PARoxetine 20 MG TABLET PO SCH (09:00)
[2021-05-20] MEDS: metFORMIN 500 MG TABLET PO SCH ×2 (09:36→21:05)
[2021-05-20] MEDS: THEOPHYLLINE ER (24 HR) 200 MG CAPSULE PO SCH (09:36)
[2021-05-20] MEDS: MONTELUKAST 10 MG TABLET PO SCH (09:37)
[2021-05-20] MEDS: DOCUSATE SODIUM 100 MG CAPSULE PO SCH (09:37)
[2021-05-20] MEDS: PANTOPRAZOLE 40 MG TABLET PO SCH (09:38)
[2021-05-20] MEDS: amLODIPine 2.5 MG TABLET PO SCH (09:38)
[2021-05-20] MEDS: GLIMEPIRIDE 4 MG TABLET PO SCH (09:40)
[2021-05-20] MEDS: LEVOFLOXACIN INJ 500 MG/100 ML PREMIX IV SCH (09:50)
[2021-05-20] MEDS: INSULIN LISPRO 100 UNIT/ML SUBCUT SCH ×4 (11:08→18:17)
[2021-05-20] MEDS: ACETAMINOPHEN 325 MG TABLET PO PRN (11:08)
[2021-05-20] MEDS: OLANZapine 2.5 MG TABLET PO SCH (21:05)
[2021-05-21] MEDS: methylPREDNISolone SOD SUC 40 MG/1 ML VIAL IV SCH ×4 (00:25→19:25)
[2021-05-21] MEDS: ALBUTEROL 2.5 MG/3 ML NEB RESP TX SCH ×6 (01:07→19:06)
[2021-05-21] MEDS: DOCUSATE SODIUM 100 MG CAPSULE PO SCH ×3 (02:21→21:59)
[2021-05-21] MEDS: INSULIN LISPRO 100 UNIT/ML SUBCUT SCH ×5 (02:21→22:00)
[2021-05-21 05:10] LABS: Basophils % 0.2 % (0.0-0.8); Hematocrit 36.2 VOL% (35.7-47.0); Hemoglobin 11.9 GM/DL (12.0-16.0); Immature Granulocytes % 2.3 %; Immature Granulocytes Absolute 0.42 #; Lymphocytes # 1.2 10*3/uL (1.4-4.0); Lymphocytes % 6.4 % (21.3-54.2); Mean Corpuscular HGB Conc 32.9 GM/DL (32-36); Mean Corpuscular Volume 81.7 FL (87-102); Mean Platelet Volume 9.3 FL (9.6-12.0); Monocytes % 3.8 % (1.7-12.7); Neutrophils % 87.3 % (38.7-73.9); Platelet Count 298 T/CUMM (130-400); Red Blood Count 4.43 MC/CUMM (3.8-5.5); Red Cell Distribution Width 13.2 % (9.3-17.3); White Blood Count 18.6 T/CUMM (4-12)
[2021-05-21 05:26] LABS: Calcium 8.4 MG/DL (8.5-10.1); Osmolality,Calculated 246.1 MOS/KG (273-304); Potassium 4.1 MMOL/L (3.5-5.1)
[2021-05-21] MEDS: metFORMIN 500 MG TABLET PO SCH ×2 (11:27→21:26)
[2021-05-21] MEDS: THEOPHYLLINE ER (24 HR) 200 MG CAPSULE PO SCH (11:28)
[2021-05-21] MEDS: amLODIPine 2.5 MG TABLET PO SCH (11:28)
[2021-05-21] MEDS: PANTOPRAZOLE 40 MG TABLET PO SCH (11:28)
[2021-05-21] MEDS: MONTELUKAST 10 MG TABLET PO SCH (11:29)
[2021-05-21] MEDS: GLIMEPIRIDE 4 MG TABLET PO SCH (11:37)
[2021-05-21] MEDS: LEVOFLOXACIN INJ 500 MG/100 ML PREMIX IV SCH (11:37)
[2021-05-21] MEDS: OLANZapine 2.5 MG TABLET PO SCH (21:26)
[2021-05-22] MEDS: methylPREDNISolone SOD SUC 40 MG/1 ML VIAL IV SCH ×4 (00:21→17:50)
[2021-05-22] MEDS: ALBUTEROL 2.5 MG/3 ML NEB RESP TX SCH ×6 (00:55→20:48)
[2021-05-22 07:54] LABS: Basophils # 0.1 10*3/uL (0.0-0.2); Basophils % 0.4 % (0.0-0.8); Hematocrit 37.4 VOL% (35.7-47.0); Hemoglobin 12.7 GM/DL (12.0-16.0); Immature Granulocytes % 4.6 %; Immature Granulocytes Absolute 0.83 #; Lymphocytes # 1.2 10*3/uL (1.4-4.0); Lymphocytes % 6.6 % (21.3-54.2); Mean Corpuscular Volume 80.4 FL (87-102); Monocytes % 6.4 % (1.7-12.7); Platelet Count 311 T/CUMM (130-400); Red Blood Count 4.65 MC/CUMM (3.8-5.5); Red Cell Distribution Width 13.2 % (9.3-17.3); White Blood Count 18.2 T/CUMM (4-12)
[2021-05-22 08:21] LABS: Calcium 8.3 MG/DL (8.5-10.1); Osmolality,Calculated 248.2 MOS/KG (273-304); Potassium 4.5 MMOL/L (3.5-5.1)
[2021-05-22 08:39] LABS: Band Neutrophils 4 % (0-10); Lymphocytes 14 % (20-55); Myelocytes 2 %; Platelet Estimate Normal; Segmented Neutrophils 72 % (50-85); Total Cells Counted 100
[2021-05-22 08:40] LABS: Anisocytosis 1+; Macrocytosis Slight
[2021-05-22] MEDS: metFORMIN 500 MG TABLET PO SCH ×2 (08:56→21:23)
[2021-05-22] MEDS: amLODIPine 2.5 MG TABLET PO SCH (08:57)
[2021-05-22] MEDS: PANTOPRAZOLE 40 MG TABLET PO SCH (08:57)
[2021-05-22] MEDS: MONTELUKAST 10 MG TABLET PO SCH (08:57)
[2021-05-22] MEDS: GLIMEPIRIDE 4 MG TABLET PO SCH (08:57)
[2021-05-22] MEDS: THEOPHYLLINE ER (24 HR) 200 MG CAPSULE PO SCH (08:58)
[2021-05-22] MEDS: INSULIN LISPRO 100 UNIT/ML SUBCUT SCH ×4 (09:23→21:23)
[2021-05-22] MEDS: DOCUSATE SODIUM 100 MG CAPSULE PO SCH ×2 (09:23→21:22)
[2021-05-22] MEDS: LEVOFLOXACIN INJ 500 MG/100 ML PREMIX IV SCH ×2 (09:30→11:36)
[2021-05-22] MEDS ORDERED: FUROSEMIDE 20 MG/2 ML VIAL IV ONE (13:12)
[2021-05-22] MEDS: SODIUM CHLORIDE 0.9% 1,000 ML IV SCH (16:54)
[2021-05-22] MEDS: OLANZapine 2.5 MG TABLET PO SCH (21:23)
[2021-05-22 21:24] LABS: Calcium 8.5 MG/DL (8.5-10.1); Osmolality,Calculated 253.1 MOS/KG (273-304); Potassium 4.5 MMOL/L (3.5-5.1)
[2021-05-23] MEDS: ALBUTEROL 2.5 MG/3 ML NEB RESP TX SCH ×6 (00:14→20:02)
[2021-05-23] MEDS: methylPREDNISolone SOD SUC 40 MG/1 ML VIAL IV SCH ×5 (00:16→23:25)
[2021-05-23] MEDS: SODIUM CHLORIDE 0.9% 1,000 ML IV SCH ×3 (04:50→17:11)
[2021-05-23 07:12] LABS: Basophils # 0.1 10*3/uL (0.0-0.2); Basophils % 0.7 % (0.0-0.8); Hematocrit 39.9 VOL% (35.7-47.0); Hemoglobin 13.2 GM/DL (12.0-16.0); Immature Granulocytes % 6.5 %; Lymphocytes # 1.3 10*3/uL (1.4-4.0); Lymphocytes % 6.2 % (21.3-54.2); Mean Corpuscular HGB Conc 33.1 GM/DL (32-36); Mean Corpuscular Volume 81.3 FL (87-102); Mean Platelet Volume 8.8 FL (9.6-12.0); Monocytes % 6.7 % (1.7-12.7); Neutrophils % 79.9 % (38.7-73.9); Platelet Count 352 T/CUMM (130-400); Red Blood Count 4.91 MC/CUMM (3.8-5.5); Red Cell Distribution Width 13.4 % (9.3-17.3); White Blood Count 21.4 T/CUMM (4-12)
[2021-05-23 07:32] LABS: Albumin 2.8 G/DL (3.4-5.0); Bilirubin,Total 0.6 MG/DL (0.20-1.00); Calcium 8.6 MG/DL (8.5-10.1); Osmolality,Calculated 254.9 MOS/KG (273-304); Potassium 4.5 MMOL/L (3.5-5.1); Total Protein 6.2 G/DL (6.4-8.2)
[2021-05-23 07:39] LABS: Lymphocytes 8 % (20-55); Platelet Estimate Adequate; Segmented Neutrophils 88 % (50-85); Total Cells Counted 100
[2021-05-23] MEDS: INSULIN LISPRO 100 UNIT/ML SUBCUT SCH ×4 (09:13→20:47)
[2021-05-23] MEDS: THEOPHYLLINE ER (24 HR) 200 MG CAPSULE PO SCH (09:13)
[2021-05-23] MEDS: metFORMIN 500 MG TABLET PO SCH ×2 (09:14→20:45)
[2021-05-23] MEDS: GLIMEPIRIDE 4 MG TABLET PO SCH (09:14)
[2021-05-23] MEDS: amLODIPine 5 MG TABLET PO SCH (09:15)
[2021-05-23] MEDS: DOCUSATE SODIUM 100 MG CAPSULE PO SCH ×2 (09:15→20:47)
[2021-05-23] MEDS: PANTOPRAZOLE 40 MG TABLET PO SCH (09:15)
[2021-05-23] MEDS: MONTELUKAST 10 MG TABLET PO SCH (09:16)
[2021-05-23] MEDS: FUROSEMIDE 20 MG/2 ML VIAL IV SCH (09:16)
[2021-05-23] MEDS: LEVOFLOXACIN INJ 500 MG/100 ML PREMIX IV SCH (09:30)
[2021-05-23] MEDS: SODIUM CHLORIDE 1 GM TABLET PO SCH ×2 (12:18→17:21)
[2021-05-23] MEDS: OLANZapine 2.5 MG TABLET PO SCH (20:45)
[2021-05-24] MEDS: ALBUTEROL 2.5 MG/3 ML NEB RESP TX SCH ×5 (00:07→19:38)
[2021-05-24 05:10] LABS: Basophils # 0.2 10*3/uL (0.0-0.2); Basophils % 0.7 % (0.0-0.8); Hematocrit 36.3 VOL% (35.7-47.0); Hemoglobin 12.2 GM/DL (12.0-16.0); Lymphocytes # 1.1 10*3/uL (1.4-4.0); Lymphocytes % 4.6 % (21.3-54.2); Mean Corpuscular HGB Conc 33.6 GM/DL (32-36); Mean Corpuscular Volume 81.2 FL (87-102); Mean Platelet Volume 8.8 FL (9.6-12.0); Monocytes % 6.8 % (1.7-12.7); Neutrophils % 80.9 % (38.7-73.9); Platelet Count 300 T/CUMM (130-400); Red Blood Count 4.47 MC/CUMM (3.8-5.5); Red Cell Distribution Width 13.7 % (9.3-17.3); White Blood Count 22.7 T/CUMM (4-12)
[2021-05-24 05:41] LABS: Albumin 2.7 G/DL (3.4-5.0); Bilirubin,Total 0.6 MG/DL (0.20-1.00); Osmolality,Calculated 257.6 MOS/KG (273-304); Potassium 4.1 MMOL/L (3.5-5.1); Total Protein 5.5 G/DL (6.4-8.2)
[2021-05-24] MEDS: methylPREDNISolone SOD SUC 40 MG/1 ML VIAL IV SCH ×3 (05:41→18:00)
[2021-05-24 05:44] LABS: Band Neutrophils 1 % (0-10); Hypochromia Slight; Lymphocytes 5 % (20-55); Microcytosis Slight; Platelet Estimate Adequate; Segmented Neutrophils 89 % (50-85); Total Cells Counted 100
[2021-05-24] MEDS: SODIUM CHLORIDE 0.9% 1,000 ML IV SCH ×4 (07:01→21:09)
[2021-05-24] MEDS: MONTELUKAST 10 MG TABLET PO SCH (09:19)
[2021-05-24] MEDS: amLODIPine 5 MG TABLET PO SCH (09:20)
[2021-05-24] MEDS: metFORMIN 500 MG TABLET PO SCH ×2 (09:21→21:07)
[2021-05-24] MEDS: GLIMEPIRIDE 4 MG TABLET PO SCH (09:21)
[2021-05-24] MEDS: SODIUM CHLORIDE 1 GM TABLET PO SCH ×2 (09:21→17:25)
[2021-05-24] MEDS: FUROSEMIDE 20 MG/2 ML VIAL IV SCH (09:22)
[2021-05-24] MEDS: THEOPHYLLINE ER (24 HR) 200 MG CAPSULE PO SCH (09:22)
[2021-05-24] MEDS: PANTOPRAZOLE 40 MG TABLET PO SCH (09:22)
[2021-05-24] MEDS: INSULIN LISPRO 100 UNIT/ML SUBCUT SCH ×4 (09:23→21:08)
[2021-05-24] MEDS: DOCUSATE SODIUM 100 MG CAPSULE PO SCH ×2 (09:23→21:08)
[2021-05-24] MEDS: LEVOFLOXACIN INJ 500 MG/100 ML PREMIX IV SCH (11:22)
[2021-05-24] MEDS: OLANZapine 2.5 MG TABLET PO SCH (21:07)
[2021-05-25] MEDS: methylPREDNISolone SOD SUC 40 MG/1 ML VIAL IV SCH ×3 (00:04→18:01)
[2021-05-25] MEDS: ALBUTEROL 2.5 MG/3 ML NEB RESP TX SCH ×6 (00:51→23:47)
[2021-05-25] MEDS: SODIUM CHLORIDE 0.9% 1,000 ML IV SCH ×4 (04:33→23:33)
[2021-05-25 05:02] LABS: Albumin 2.7 G/DL (3.4-5.0); Bilirubin,Total 0.6 MG/DL (0.20-1.00); Calcium 8.1 MG/DL (8.5-10.1); Osmolality,Calculated 264.1 MOS/KG (273-304); Potassium 4.2 MMOL/L (3.5-5.1); Total Protein 5.6 G/DL (6.4-8.2)
[2021-05-25] MEDS: INSULIN LISPRO 100 UNIT/ML SUBCUT SCH ×4 (11:13→20:41)
[2021-05-25] MEDS: LEVOFLOXACIN INJ 500 MG/100 ML PREMIX IV SCH (11:22)
[2021-05-25] MEDS: GLIMEPIRIDE 4 MG TABLET PO SCH (11:23)
[2021-05-25] MEDS: metFORMIN 500 MG TABLET PO SCH ×2 (11:23→20:41)
[2021-05-25] MEDS: amLODIPine 5 MG TABLET PO SCH (11:23)
[2021-05-25] MEDS: MONTELUKAST 10 MG TABLET PO SCH (11:23)
[2021-05-25] MEDS: THEOPHYLLINE ER (24 HR) 200 MG CAPSULE PO SCH (11:23)
[2021-05-25] MEDS: PANTOPRAZOLE 40 MG TABLET PO SCH (11:24)
[2021-05-25] MEDS: DOCUSATE SODIUM 100 MG CAPSULE PO SCH ×2 (11:24→20:41)
[2021-05-25] MEDS: SODIUM CHLORIDE 1 GM TABLET PO SCH ×2 (11:26→17:03)
[2021-05-25] MEDS: FUROSEMIDE 20 MG/2 ML VIAL IV SCH (18:04)
[2021-05-25] MEDS: OLANZapine 2.5 MG TABLET PO SCH (20:41)
[2021-05-26] MEDS: ALBUTEROL 2.5 MG/3 ML NEB RESP TX SCH ×3 (03:08→09:53)
[2021-05-26] MEDS: SODIUM CHLORIDE 0.9% 1,000 ML IV SCH (04:24)
[2021-05-26 05:51] LABS: Basophils % 0.1 % (0.0-0.8); Eosinophils % 0.1 % (0.00-10.9); Hematocrit 38.4 VOL% (35.7-47.0); Hemoglobin 12.6 GM/DL (12.0-16.0); Immature Granulocytes % 7.5 %; Lymphocytes # 2.4 10*3/uL (1.4-4.0); Mean Corpuscular HGB Conc 32.8 GM/DL (32-36); Mean Corpuscular Volume 83.3 FL (87-102); Mean Platelet Volume 8.6 FL (9.6-12.0); Monocytes % 9.2 % (1.7-12.7); Neutrophils % 77.1 % (38.7-73.9); Platelet Count 295 T/CUMM (130-400); Red Blood Count 4.61 MC/CUMM (3.8-5.5); White Blood Count 39.8 T/CUMM (4-12)
[2021-05-26] MEDS: methylPREDNISolone SOD SUC 40 MG/1 ML VIAL IV SCH (05:58)
[2021-05-26 06:13] LABS: Calcium 7.8 MG/DL (8.5-10.1); Potassium 3.4 MMOL/L (3.5-5.1)
[2021-05-26 06:24] LABS: Lymphocytes 13 % (20-55); Platelet Estimate Normal; Segmented Neutrophils 78 % (50-85); Total Cells Counted 100
[2021-05-26] MEDS: PANTOPRAZOLE 40 MG TABLET PO SCH (09:13)
[2021-05-26] MEDS: MONTELUKAST 10 MG TABLET PO SCH (09:13)
[2021-05-26] MEDS: metFORMIN 500 MG TABLET PO SCH (09:13)
[2021-05-26] MEDS: GLIMEPIRIDE 4 MG TABLET PO SCH (09:14)
[2021-05-26] MEDS: SODIUM CHLORIDE 1 GM TABLET PO SCH (09:14)
[2021-05-26] MEDS: amLODIPine 5 MG TABLET PO SCH (09:14)
[2021-05-26] MEDS: THEOPHYLLINE ER (24 HR) 200 MG CAPSULE PO SCH (09:14)
[2021-05-26] MEDS: DOCUSATE SODIUM 100 MG CAPSULE PO SCH (09:16)
[2021-05-26] MEDS: INSULIN LISPRO 100 UNIT/ML SUBCUT SCH ×2 (11:27→11:56)
[2021-05-26] MEDS: LEVOFLOXACIN INJ 500 MG/100 ML PREMIX IV SCH (11:55)
[2021-05-26 13:01] VITALS: BP 148/65
[2021-05-26] MEDS ORDERED: INFLUENZA VIRUS VACCINE 0.5 ML SYRINGE IM ONE (13:05)
== END 2021-05-26 13:07 | disposition home health service (06) | DRG 190 ==
LOC: EDBD → EDUNIT# → N.ED 18:31 → N.EDINP 21:37 → N.TELEN 05-19 05:57
PROVIDERS: ADMIT Internal Medicine; ATTEND Internal Medicine

== ENCOUNTER 2021-05-28 17:36 | Inpatient (IN) ==
[2021-05-28] MEDS ORDERED: DEXTROSE 50% 25 GM/50 ML SYRINGE IV ONE (17:44)
[2021-05-28] MEDS ORDERED: DEXTROSE 50% 25 GM/50 ML SYRINGE IV STA ×2 (17:47→17:49)
[2021-05-28] MEDS ORDERED: DEXTROSE 50% 25 GM/50 ML VIAL IV STA ×2 (17:48→19:55)
[2021-05-28] MEDS: DEXTROSE 5% 1,000 ML IV SCH (18:15)
[2021-05-28 18:19] LABS: ABG Base Excess 3.3 MMOL/L (-2.5-2.5); ABG HCO3 27.8 MMOL/L (20-26); ABG Oxygen Saturation 98.8 % (95-100); ABG PCO2 42.2 MM HG (35-48); ABG PH 7.437 (7.35-7.45); ABG PO2 139.7 MM HG (80-95); ABG TCO2 29.1 MMOL/L (23-27)
[2021-05-28 18:44] LABS: Basophils # 0.1 10*3/uL (0.0-0.2); Basophils % 0.4 % (0.0-0.8); Eosinophils # 0.1 10*3/uL (0.0-0.87); Eosinophils % 0.2 % (0.00-10.9); Hematocrit 38.3 VOL% (35.7-47.0); Hemoglobin 12.4 GM/DL (12.0-16.0); Immature Granulocytes % 4.1 %; Immature Granulocytes Absolute 1.01 #; Lymphocytes # 2.1 10*3/uL (1.4-4.0); Lymphocytes % 8.7 % (21.3-54.2); Mean Corpuscular HGB Conc 32.4 GM/DL (32-36); Mean Corpuscular Volume 82.2 FL (87-102); Mean Platelet Volume 9.2 FL (9.6-12.0); Monocytes % 8.9 % (1.7-12.7); Neutrophils % 77.7 % (38.7-73.9); Platelet Count 174 T/CUMM (130-400); Red Blood Count 4.66 MC/CUMM (3.8-5.5); Red Cell Distribution Width 13.9 % (9.3-17.3); White Blood Count 24.4 T/CUMM (4-12)
[2021-05-28 19:19] LABS: Albumin 2.4 G/DL (3.4-5.0); Bilirubin,Total 0.6 MG/DL (0.20-1.00); Calcium 7.6 MG/DL (8.5-10.1); Osmolality,Calculated 259.8 MOS/KG (273-304); Potassium 3.4 MMOL/L (3.5-5.1); Total Protein 5.2 G/DL (6.4-8.2)
[2021-05-28 19:21] LABS: Bacteria,Urine Occasional /HPF (Few); Bilirubin,Urine Negative (Negative); Blood, Urine Negative (Negative); Glucose,Urine (UA) >=500 mg/dL (Negative); Ketones,Urine Negative (Negative); Mucus,Urine Occasional /LPF (Occasional); Nitrite,Urine Negative (Negative); Protein,Urine Negative; RBC,Urine 1 /HPF (0-4); Squamous Epithelial Cell,Urine Occasional /HPF (0-10); Urine Appearance CLEAR (Clear); Urine Color Straw (Yellow); Urine Specific Gravity 1.008 (1.001-1.035); Urine Urobilinogen < 2.0 EU/DL (<2.0)
[2021-05-28] MEDS ORDERED: PIPERACILLIN/TAZOBACTAM 3,375 MG in SODIUM CHLORIDE 0.9% 100 ML IV STA ×2 (19:26→19:55)
[2021-05-28 19:30] LABS: Barbiturates Screen,Urine Negative (Negative); Benzodiazepines Screen,Urine Negative (Negative); Cannabinoid Screen,Urine Negative (Negative); Opiate Screen,Urine Negative (Negative); Phencyclidine Screen,Urine Negative (Negative)
[2021-05-28] MEDS ORDERED: DEXTROSE 10% 500 ML IV ONE (19:35)
[2021-05-28] MEDS: DEXTROSE 10% 1,000 ML IV SCH (19:50)
[2021-05-28] MEDS ORDERED: HYDROCORTISONE 100 MG VIAL IV STA (19:57)
[2021-05-28] MEDS ORDERED: ACETAMINOPHEN 325 MG TABLET PO PRN (20:44)
[2021-05-28] MEDS ORDERED: GLUCAGON 1 MG VIAL IM PRN (20:44)
[2021-05-28] MEDS ORDERED: ONDANSETRON 4 MG/2 ML VIAL IV PRN (20:44)
[2021-05-28] MEDS ORDERED: DEXTROSE 50% 25 GM/50 ML SYRINGE IV PRN (20:59)
[2021-05-28 21:18] LABS: Lymphocytes 12 % (20-55); Microcytosis 1+; Segmented Neutrophils 82 % (50-85); Total Cells Counted 100
[2021-05-28 21:19] LABS: Platelet Estimate Decreased
[2021-05-28] MEDS ORDERED: FUROSEMIDE 40 MG/4 ML VIAL IV STA (22:04)
[2021-05-28] MEDS ORDERED: HYDROCORTISONE 100 MG VIAL IV SCH (22:30)
[2021-05-28] MEDS: cefTRIAXone 1,000 MG in SODIUM CHLORIDE 0.9% 100 ML IV SCH (22:45)
[2021-05-29] MEDS ORDERED: DEXTROSE 50% 25 GM/50 ML VIAL IV ONE (00:07)
[2021-05-29] MEDS ORDERED: DEXTROSE 50% 25 GM/50 ML SYRINGE IV ONE (00:30)
[2021-05-29] MEDS: AZITHROMYCIN INJ 500 MG in SODIUM CHLORIDE 0.9% 250 ML IV SCH ×2 (00:55→23:55)
[2021-05-29 04:02] LABS: Basophils # 0.1 10*3/uL (0.0-0.2); Basophils % 0.3 % (0.0-0.8); Hematocrit 36.7 VOL% (35.7-47.0); Hemoglobin 12.2 GM/DL (12.0-16.0); Immature Granulocytes % 3.5 %; Immature Granulocytes Absolute 0.91 #; Lymphocytes # 2.1 10*3/uL (1.4-4.0); Lymphocytes % 7.9 % (21.3-54.2); Mean Corpuscular HGB Conc 33.2 GM/DL (32-36); Mean Corpuscular Volume 81.6 FL (87-102); Mean Platelet Volume 9.6 FL (9.6-12.0); Neutrophils % 82.3 % (38.7-73.9); Platelet Count 168 T/CUMM (130-400); Red Cell Distribution Width 13.8 % (9.3-17.3); White Blood Count 26.4 T/CUMM (4-12)
[2021-05-29 04:18] LABS: Calcium 7.6 MG/DL (8.5-10.1); Osmolality,Calculated 255.1 MOS/KG (273-304); Potassium 3.1 MMOL/L (3.5-5.1)
[2021-05-29 04:21] LABS: Band Neutrophils 1 % (0-10); Hypochromia 1+; Lymphocytes 6 % (20-55); Microcytosis 1+; Ovalocytes Slight; Segmented Neutrophils 90 % (50-85); Total Cells Counted 100
[2021-05-29 04:22] LABS: Platelet Estimate Adequate
[2021-05-29] MEDS: DEXTROSE 10% 1,000 ML IV SCH ×2 (07:02→17:37)
[2021-05-29] MEDS: HYDROCORTISONE 100 MG VIAL IV SCH ×3 (08:25→23:20)
[2021-05-29] MEDS ORDERED: PIPERACILLIN/TAZOBACTAM 3,375 MG in SODIUM CHLORIDE 0.9% 100 ML IV SCH (09:00)
[2021-05-29] MEDS: ALBUTEROL 2.5 MG/3 ML NEB RESP TX SCH ×4 (10:55→23:30)
[2021-05-29] MEDS ORDERED: LEVOFLOXACIN 250 MG TABLET PO SCH (11:30)
[2021-05-29] MEDS ORDERED: OMEPRAZOLE ODT 20 MG TABLET PO SCH (11:30)
[2021-05-29] MEDS ORDERED: LEVOFLOXACIN INJ 250 MG/50 ML PREMIX IV SCH (16:00)
[2021-05-29] MEDS ORDERED: DEXTROSE 5% 1,000 ML IV SCH (16:00)
[2021-05-29] MEDS: DEXTROSE 5% 1,000 ML IV SCH (17:38)
[2021-05-29] MEDS: SODIUM CHLORIDE 1 GM TABLET PO SCH (17:43)
[2021-05-29] MEDS: cefTRIAXone 1,000 MG in SODIUM CHLORIDE 0.9% 100 ML IV SCH (23:12)
[2021-05-29] MEDS: OLANZapine 2.5 MG TABLET PO SCH (23:24)
[2021-05-30] MEDS: ALBUTEROL 2.5 MG/3 ML NEB RESP TX SCH ×6 (03:23→23:48)
[2021-05-30 05:35] LABS: Basophils % 0.1 % (0.0-0.8); Eosinophils # 0.1 10*3/uL (0.0-0.87); Eosinophils % 0.5 % (0.00-10.9); Hematocrit 32.5 VOL% (35.7-47.0); Hemoglobin 10.8 GM/DL (12.0-16.0); Immature Granulocytes % 2.2 %; Immature Granulocytes Absolute 0.34 #; Lymphocytes # 3.4 10*3/uL (1.4-4.0); Mean Corpuscular HGB Conc 33.2 GM/DL (32-36); Mean Platelet Volume 9.7 FL (9.6-12.0); Monocytes % 11.4 % (1.7-12.7); Neutrophils % 63.8 % (38.7-73.9); Platelet Count 146 T/CUMM (130-400); Red Blood Count 4.01 MC/CUMM (3.8-5.5); Red Cell Distribution Width 13.5 % (9.3-17.3); White Blood Count 15.4 T/CUMM (4-12)
[2021-05-30 05:55] LABS: Calcium 7.8 MG/DL (8.5-10.1); Osmolality,Calculated 254.2 MOS/KG (273-304); Potassium 2.8 MMOL/L (3.5-5.1)
[2021-05-30] MEDS: DEXTROSE 5% NACL 0.9% 1,000 ML IV SCH ×2 (08:57→22:17)
[2021-05-30] MEDS ORDERED: DEXTROSE 5% NACL 0.9% 1,000 ML IV SCH (09:00)
[2021-05-30] MEDS: METOPROLOL SUCCINATE XL 100 MG TABLET PO SCH (09:11)
[2021-05-30] MEDS: MONTELUKAST 10 MG TABLET PO SCH (09:11)
[2021-05-30] MEDS: SODIUM CHLORIDE 1 GM TABLET PO SCH ×2 (09:11→17:28)
[2021-05-30] MEDS: amLODIPine 2.5 MG TABLET PO SCH (09:12)
[2021-05-30] MEDS: HYDROCORTISONE 100 MG VIAL IV SCH (09:35)
[2021-05-30] MEDS: POTASSIUM CHLORIDE 20 MEQ TABLET PO PRN ×3 (09:57→21:37)
[2021-05-30] MEDS: methylPREDNISolone SOD SUC 40 MG/1 ML VIAL IV SCH ×2 (13:17→21:00)
[2021-05-30] MEDS: cefTRIAXone 1,000 MG in SODIUM CHLORIDE 0.9% 100 ML IV SCH (21:32)
[2021-05-30] MEDS: OLANZapine 2.5 MG TABLET PO SCH (21:37)
[2021-05-30] MEDS: AZITHROMYCIN INJ 500 MG in SODIUM CHLORIDE 0.9% 250 ML IV SCH (22:18)
[2021-05-31] MEDS: POTASSIUM CHLORIDE 20 MEQ TABLET PO PRN (01:08)
[2021-05-31] MEDS: ALBUTEROL 2.5 MG/3 ML NEB RESP TX SCH ×6 (03:32→23:42)
[2021-05-31 05:24] LABS: Basophils % 0.1 % (0.0-0.8); Hematocrit 29.6 VOL% (35.7-47.0); Hemoglobin 9.7 GM/DL (12.0-16.0); Immature Granulocytes % 1.9 %; Immature Granulocytes Absolute 0.25 #; Lymphocytes # 1.3 10*3/uL (1.4-4.0); Lymphocytes % 9.7 % (21.3-54.2); Mean Corpuscular HGB Conc 32.8 GM/DL (32-36); Mean Corpuscular Volume 82.5 FL (87-102); Monocytes % 8.3 % (1.7-12.7); Platelet Count 177 T/CUMM (130-400); Red Blood Count 3.59 MC/CUMM (3.8-5.5); Red Cell Distribution Width 13.4 % (9.3-17.3)
[2021-05-31 05:49] LABS: Calcium 7.7 MG/DL (8.5-10.1); Osmolality,Calculated 281.1 MOS/KG (273-304); Potassium 3.6 MMOL/L (3.5-5.1)
[2021-05-31] MEDS: methylPREDNISolone SOD SUC 40 MG/1 ML VIAL IV SCH (06:16)
[2021-05-31] MEDS: METOPROLOL SUCCINATE XL 100 MG TABLET PO SCH (09:05)
[2021-05-31] MEDS: MONTELUKAST 10 MG TABLET PO SCH (09:05)
[2021-05-31] MEDS: amLODIPine 2.5 MG TABLET PO SCH (09:05)
[2021-05-31] MEDS: SODIUM CHLORIDE 1 GM TABLET PO SCH ×2 (09:05→16:40)
[2021-05-31] MEDS: SODIUM CHLORIDE 0.9% 1,000 ML IV SCH (09:08)
[2021-05-31] MEDS ORDERED: methylPREDNISolone SOD SUC 40 MG/1 ML VIAL IV SCH (21:00)
[2021-05-31] MEDS: cefTRIAXone 1,000 MG in SODIUM CHLORIDE 0.9% 100 ML IV SCH (21:44)
[2021-05-31] MEDS: OLANZapine 2.5 MG TABLET PO SCH (21:47)
[2021-05-31] MEDS: AZITHROMYCIN INJ 500 MG in SODIUM CHLORIDE 0.9% 250 ML IV SCH (22:35)
[2021-06-01] MEDS: ALBUTEROL 2.5 MG/3 ML NEB RESP TX SCH ×5 (03:41→19:52)
[2021-06-01 06:30] LABS: Calcium 8.2 MG/DL (8.5-10.1); Osmolality,Calculated 270.4 MOS/KG (273-304); Potassium 4.3 MMOL/L (3.5-5.1)
[2021-06-01] MEDS: SODIUM CHLORIDE 0.9% 1,000 ML IV SCH (07:41)
[2021-06-01] MEDS: SODIUM CHLORIDE 1 GM TABLET PO SCH ×2 (07:41→16:00)
[2021-06-01 07:45] LABS: Basophils % 0.1 % (0.0-0.8); Hematocrit 34.2 VOL% (35.7-47.0); Hemoglobin 10.9 GM/DL (12.0-16.0); Immature Granulocytes Absolute 0.33 #; Lymphocytes # 1.7 10*3/uL (1.4-4.0); Lymphocytes % 10.6 % (21.3-54.2); Mean Corpuscular HGB Conc 31.9 GM/DL (32-36); Mean Corpuscular Volume 84.2 FL (87-102); Mean Platelet Volume 9.8 FL (9.6-12.0); Monocytes % 5.7 % (1.7-12.7); Neutrophils % 81.6 % (38.7-73.9); Platelet Count 199 T/CUMM (130-400); Red Blood Count 4.06 MC/CUMM (3.8-5.5); Red Cell Distribution Width 13.7 % (9.3-17.3); White Blood Count 16.3 T/CUMM (4-12)
[2021-06-01] MEDS: MONTELUKAST 10 MG TABLET PO SCH (08:11)
[2021-06-01] MEDS: METOPROLOL SUCCINATE XL 100 MG TABLET PO SCH (08:11)
[2021-06-01] MEDS: amLODIPine 2.5 MG TABLET PO SCH (08:11)
[2021-06-01] MEDS: DEXTROSE 5% NACL 0.9% 1,000 ML IV SCH ×2 (10:04→20:23)
[2021-06-01] MEDS: HALOPERIDOL 5 MG/ML AMP IM PRN (14:06)
[2021-06-01] MEDS: cefTRIAXone 1,000 MG in SODIUM CHLORIDE 0.9% 100 ML IV SCH (20:23)
[2021-06-01] MEDS: OLANZapine 2.5 MG TABLET PO SCH (20:28)
[2021-06-01] MEDS: AZITHROMYCIN INJ 500 MG in SODIUM CHLORIDE 0.9% 250 ML IV SCH (21:09)
[2021-06-02] MEDS: ALBUTEROL 2.5 MG/3 ML NEB RESP TX SCH ×7 (00:10→23:49)
[2021-06-02 04:59] LABS: Basophils % 0.2 % (0.0-0.8); Eosinophils # 0.1 10*3/uL (0.0-0.87); Eosinophils % 0.4 % (0.00-10.9); Hematocrit 31.7 VOL% (35.7-47.0); Hemoglobin 10.2 GM/DL (12.0-16.0); Immature Granulocytes % 1.1 %; Immature Granulocytes Absolute 0.14 #; Lymphocytes # 2.6 10*3/uL (1.4-4.0); Lymphocytes % 20.9 % (21.3-54.2); Mean Corpuscular HGB Conc 32.2 GM/DL (32-36); Mean Corpuscular Volume 83.9 FL (87-102); Mean Platelet Volume 9.9 FL (9.6-12.0); Monocytes % 10.3 % (1.7-12.7); Neutrophils % 67.1 % (38.7-73.9); Platelet Count 186 T/CUMM (130-400); Red Blood Count 3.78 MC/CUMM (3.8-5.5); Red Cell Distribution Width 13.4 % (9.3-17.3); White Blood Count 12.5 T/CUMM (4-12)
[2021-06-02 05:07] LABS: PT Patient Result 11.7 SECS (10.5-12.0)
[2021-06-02 05:14] LABS: Calcium 8.1 MG/DL (8.5-10.1); Osmolality,Calculated 275.8 MOS/KG (273-304); Potassium 3.3 MMOL/L (3.5-5.1)
[2021-06-02] MEDS ORDERED: LACTATED RINGERS 1,000 ML IV SCH (06:00)
[2021-06-02] MEDS: DEXTROSE 5% NACL 0.9% 1,000 ML IV SCH ×2 (06:31→21:36)
[2021-06-02] MEDS ORDERED: POTASSIUM CHLORIDE RIDER 10 MEQ/100 ML PREMIX IV PRN (08:14)
[2021-06-02] MEDS: SODIUM CHLORIDE 1 GM TABLET PO SCH ×2 (10:11→18:32)
[2021-06-02] MEDS: MONTELUKAST 10 MG TABLET PO SCH (10:11)
[2021-06-02] MEDS: amLODIPine 2.5 MG TABLET PO SCH (10:11)
[2021-06-02] MEDS: METOPROLOL SUCCINATE XL 100 MG TABLET PO SCH (10:11)
[2021-06-02] MEDS ORDERED: propofoL 200 MG/20 ML VIAL IV ONE (11:50)
[2021-06-02] MEDS ORDERED: LIDOCAINE 2% 5 ML VIAL ONE (11:50)
[2021-06-02] MEDS ORDERED: ETOMIDATE 20 MG/10 ML VIAL IV ONE (11:50)
[2021-06-02] MEDS: cefTRIAXone 1,000 MG in SODIUM CHLORIDE 0.9% 100 ML IV SCH (21:34)
[2021-06-02] MEDS: OLANZapine 2.5 MG TABLET PO SCH (21:35)
[2021-06-02] MEDS: POTASSIUM CHLORIDE 20 MEQ TABLET PO PRN (21:35)
[2021-06-03] MEDS: DEXTROSE 5% NACL 0.9% 1,000 ML IV SCH ×3 (01:12→20:40)
[2021-06-03] MEDS: HALOPERIDOL 5 MG/ML AMP IM PRN (02:24)
[2021-06-03] MEDS: ALBUTEROL 2.5 MG/3 ML NEB RESP TX SCH ×5 (03:33→19:57)
[2021-06-03 06:13] LABS: Calcium 8.4 MG/DL (8.5-10.1); Potassium 3.2 MMOL/L (3.5-5.1)
[2021-06-03] MEDS: METOPROLOL SUCCINATE XL 100 MG TABLET PO SCH (08:18)
[2021-06-03] MEDS: MONTELUKAST 10 MG TABLET PO SCH (08:19)
[2021-06-03] MEDS: amLODIPine 2.5 MG TABLET PO SCH (08:19)
[2021-06-03] MEDS: SODIUM CHLORIDE 1 GM TABLET PO SCH ×2 (08:20→16:25)
[2021-06-03] MEDS: POTASSIUM CHLORIDE 20 MEQ TABLET PO PRN ×4 (10:39→18:07)
[2021-06-03] MEDS: OLANZapine 2.5 MG TABLET PO SCH (21:42)
[2021-06-03] MEDS: cefTRIAXone 1,000 MG in SODIUM CHLORIDE 0.9% 100 ML IV SCH (21:42)
[2021-06-04] MEDS: ALBUTEROL 2.5 MG/3 ML NEB RESP TX SCH ×4 (00:11→11:24)
[2021-06-04] MEDS: SODIUM CHLORIDE 1 GM TABLET PO SCH (08:23)
[2021-06-04] MEDS: amLODIPine 2.5 MG TABLET PO SCH (08:24)
[2021-06-04] MEDS: METOPROLOL SUCCINATE XL 100 MG TABLET PO SCH (08:24)
[2021-06-04] MEDS: MONTELUKAST 10 MG TABLET PO SCH (08:24)
[2021-06-04] MEDS ORDERED: POTASSIUM BICARB EFFERVESCENT 20 MEQ TAB.EFF PO ONE (12:00)
[2021-06-04 12:16] VITALS: BP 148/52
== END 2021-06-04 15:30 | disposition home health service (06) | DRG 637 ==
LOC: EDBD → EDUNIT# → N.ED 17:36 → SUATTDRO 20:44 → N.EDINP 20:44 → N.5E 05-29 17:13
PROVIDERS: ADMIT Internal Medicine; ATTEND Internal Medicine
PROC: EGDWPEG (ICD-10-PCS; 2021-06-02 08:05)